=== PATIENT | female | born 1950 | race Caucasian/White ===

== ENCOUNTER 2022-08-20 07:00 | Outpatient (CLI) | payer MEDICARE ==
--- NOTE | 2022-08-20 11:30 | XRAY Report ---
PROCEDURE: Chest 2 View X-Ray INDICATIONS: ACUTE COUGH TECHNIQUE: 2 views of the chest were acquired. COMPARISON: None. FINDINGS: Surgical changes and devices: None. Lungs and pleura: No pleural effusions or pneumothorax. Lungs are clear. Mediastinum: Mediastinal contours appear normal. Heart size is normal. Bones and chest wall: No suspicious bony lesions. Overlying soft tissues appear unremarkable. IMPRESSION: No acute cardiopulmonary process. Reviewed by: Vern Frias on 08/20/2022 11:28 AM PDT Approved by: Vern Frias on 08/20/2022 11:28 AM PDT Station ID: [id number]
== END 2022-08-20 23:59 | disposition home or self-care (01) ==
LOC: DI.S 07:00
PROVIDERS: ATTEND Physician Assistant Medical
DX: R05.1 Acute cough (principal); R09.89 Other specified symptoms and signs involving the circulatory and respiratory systems

== ENCOUNTER 2023-11-10 07:00 | Outpatient (CLI) | payer MEDICARE ==
--- NOTE | 2023-11-10 14:19 | XRAY Report ---
PROCEDURE: Knee 3V RT INDICATIONS: PAIN IN RIGHT KNEE TECHNIQUE: 3 views of the knee(s) were acquired. COMPARISON: None. FINDINGS: Bones: Mild degenerative changes. No acute displaced fracture or dislocation. There is a age-indeterm inate small bone fragment above the patella. Soft tissues: No significant effusion. IMPRESSION: There is an age-indeterminate small bone fragment about the patella. Otherwise, no acute displaced fr acture or dislocation. No significant joint effusion. Mild background degenerative changes. If there is high concern for further derangement, consider MRI evaluation. Reviewed by: Vinayak Urias MD on 11/10/2023 2:18 PM PDT Approved by: Vinayak Urias MD on 11/10/2023 2:18 PM PDT Station ID: [id number]
== END 2023-11-10 23:59 | disposition home or self-care (01) ==
LOC: DI.S 07:00
PROVIDERS: ATTEND Registered Nurse
DX: M17.11 Unilateral primary osteoarthritis, right knee (principal); M23.41 Loose body in knee, right knee

== ENCOUNTER 2023-11-21 08:38 | Outpatient (CLI) | payer MEDICARE ==
--- NOTE | 2023-11-24 13:06 | MRI Report ---
PROCEDURE: Knee RT WO INDICATIONS: R KNEE EFFUSION TECHNIQUE: Noncontrast sagittal PD fast spin echo and T2 fast spin echo with fat saturation, sagittal 3-D gradie nt sequence with fat saturation; coronal T1 spin echo and PD fast spin echo with fat saturation, and axial PD fast spin echo with fat saturation through the knee. COMPARISON: 11/10/2023 radiograph FINDINGS: Image quality: Diagnostic Menisci Medial: Tiny horizontal tear of the posterior horn Lateral: Intact. Meniscopopliteal fascicles maintained. Cruciate ligaments: Intact Medial structures MCL: Mild signal abnormality at the proximal aspect Pes anserine tendons: Intact Semimembranosus: Intact Lateral structures LCL: Mild thickening of the proximal aspect, probably from prior injury/scarring Biceps femoris: Intact IT band: Intact Popliteus tendon: Intact Anterior structures Extensor mechanism: Intact Fat pads: Moderate prepatellar edema. There is also mild to moderate edema in Hoffa's fat pad and jeni driceps fat pad Medial retinaculum: Intact. Trochlea: Borderline TT TG distance at 1.9 cm. Bone and joint Bones: Moderate edema is seen in the anterior lateral tibial plateau. There is no displaced fracture fragment. Cartilage: Multifocal areas of partial-thickness loss in the lateral and medial compartments More significant fissuring is seen at the lateral tibial plateau. More focal cartilaginous loss is seen at the medial patellar facet, with areas of subchondral edema Joint space: Small joint effusion Whitlock's cyst: None Soft tissues: No significant vascular or other soft tissue pathology. IMPRESSION: Nondisplaced fracture of the anterolateral tibial plateau. Moderate degenerative changes and cartilage loss, particularly at the medial patellar facet with area s of full-thickness defects and subchondral edema. Sprain of the MCL. Intact cruciate ligaments. Likely degenerative horizontal tear of the posterior horn of the medial meniscus. Nonspecific edema in Hoffa's fat pad, quadriceps fat pad, and prepatellar space. Borderline increased TT TG distance, sometimes seen with maltracking. Reviewed by: Vinayak Urias MD on 11/24/2023 1:04 PM PDT Approved by: Vinayak Urias MD on 11/24/2023 1:04 PM PDT Station ID: [id number]
== END 2023-11-21 08:39 | disposition home or self-care (01) ==
LOC: DI 08:38
PROVIDERS: ATTEND Registered Nurse
DX: S82.144A Nondisplaced bicondylar fracture of right tibia, initial encounter for closed fracture (principal); M17.11 Unilateral primary osteoarthritis, right knee; S83.411A Sprain of medial collateral ligament of right knee, initial encounter; S83.241A Other tear of medial meniscus, current injury, right knee, initial encounter